=== PATIENT | female | born 1990 ===

== ENCOUNTER 2019-02-19 22:10 | Emergency (ER) | payer OTHER ==
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
[2019-02-20] MEDS ORDERED: IBUPROFEN PO ONE (00:07)
[2019-02-20 00:24] LABS: HCG Qualitative,Urine Negative (Negative)
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
[2019-02-20 02:20] VITALS: BP 137/95
== END 2019-02-20 02:20 | disposition home or self-care (01) ==
LOC: ED 22:10
DX: S16.1XXA Strain of muscle, fascia and tendon at neck level, initial encounter (principal); S39.012A Strain of muscle, fascia and tendon of lower back, initial encounter; Z88.0 Allergy status to penicillin; V89.2XXA Person injured in unspecified motor-vehicle accident, traffic, initial encounter; Y93.89 Activity, other specified; Y92.488 Other paved roadways as the place of occurrence of the external cause; Y99.8 Other external cause status
CPT/HCPCS: 72040; 72072; 81025; 99284